=== PATIENT | male | born 1955 | race Caucasian/White ===

== ENCOUNTER 2017-03-01 18:51 | Day surgery (SDC) | payer BC ==
[2017-03-01] MEDS ORDERED: NITROGLYCERIN 0.4 MG BTL SL ONE (19:28)
[2017-03-01] MEDS ORDERED: GLUCAGON,HUMAN RECOMBINANT 1 MG VIAL IVP ONE ×2 (19:28→20:31)
[2017-03-01] MEDS ORDERED: NS 1,000 ML IV ONE (19:28)
--- NOTE | 2017-03-01 19:32 | EDPHY ---
H & P Stated Complaint: something stuck in throat Time Seen by Provider: 03/01/17 19:18 HPI/ROS: CHIEF COMPLAINT: Esophageal foreign body HISTORY OF PRESENT ILLNESS: The patient is a 61-year-old man who comes to the emergency depart with his complaining of chicken stuck in his esophagus. He states that he ate a piece of barbecue chicken while he was walking around 3 o'clock this afternoon. It got stuck in his throat. He self-induced vomiting and thinks that he got most of it out but is still having trouble swallowing his secretions. He denies any respiratory symptoms. He denies chest pain. He states that this is happened intermittently in the past but he has never been worked up for it. Usually it passes when he self induces vomiting. He did take Cialis this morning but takes no other medications other than a over-the- counter thyroid supplement. No history of cardiac disease. REVIEW OF SYSTEMS: Constitutional: denies: chills, fever, recent illness, recent injury EENTM: denies: blurred vision, double vision, nose congestion Respiratory: denies: cough, shortness of breath Cardiac: denies: chest pain, irregular heart rate, lightheadedness, palpitations Gastrointestinal/Abdominal see HPI Genitourinary: denies: dysuria, frequency, hematuria, pain Musculoskeletal: denies: joint pain, muscle pain Skin: denies: lesions, rash, jaundice, bruising Neurological: denies: headache, numbness, paresthesia, tingling, dizziness, weakness Hematologic/Lymphatic: denies: blood clots, easy bleeding, easy bruising Immunologic/allergic: denies: HIV/AIDS, transplant EXAM: GENERAL: Well-appearing, spitting saliva . HEAD: Atraumatic, normocephalic. EYES: Pupils equal round and reactive to light, extraocular movements intact, sclera anicteric, conjunctiva are normal. ENT: TMs normal, nares patent, oropharynx clear without exudates. Moist mucous membranes. NECK: Normal range of motion, supple without lymphadenopathy or JVD. LUNGS: Breath sounds clear to auscultation bilaterally and equal. No wheezes rales or rhonchi. HEART: Regular rate and rhythm without murmurs, rubs or gallops. ABDOMEN: Soft, nontender, normoactive bowel sounds. No guarding, no rebound. No masses appreciated. BACK: No CVA tenderness, no spinal tenderness, step-offs or deformities EXTREMITIES: Normal range of motion, no pitting or edema. No clubbing or cyanosis. NEUROLOGICAL: Cranial nerves II through XII grossly intact. Normal speech, normal gait. 5/5 strength, normal movement in all extremities, normal sensation PSYCH: Normal mood, normal affect. SKIN: Warm, dry, normal turgor, no visible rashes or lesions. Source: Patient Exam Limitations: No limitations - Personal History Current Tetanus/Diphtheria Vaccine: Yes Current Tetanus Diphtheria and Acellular Pertussis (TDAP): Yes - Medical/Surgical History Hx Asthma: No Hx Chronic Respiratory Disease: No Hx Diabetes: No Hx Cardiac Disease: No Hx Renal Disease: No Hx Cirrhosis: No Hx Alcoholism: No Hx HIV/AIDS: No Hx Splenectomy or Spleen Trauma: No Other PMH: hypothyroid, genital herpes, BPH, DYLAN knee surgery - Family History Significant Family History: No pertinent family hx - Social History Smoking Status: Never smoked Alcohol Use: Sober Drug Use: None Constitutional: Initial Vital Signs Temperature (C) 36.6 C 03/01/17 19:02 Heart Rate 64 03/01/17 19:02 Respiratory Rate 16 03/01/17 19:02 Blood Pressure 136/88 H 03/01/17 19:02 O2 Sat (%) 92 03/01/17 19:02 O2 Delivery Mode Simple Mask Allergies/Adverse Reactions: No Known Allergies Allergy (Unverified 03/01/17 19:01) Home Medications: Medication Instructions Recorded Cialis 03/01/17 Nature Thyroid 03/01/17 Medical Decision Making ED Course/Re-evaluation: The patient has satisfactory blood pressure. I will start IV fluids and give him nitroglycerin and glucagon and then try carbonated drink. 8:30 p.m. the patient has not had success after nitroglycerin, glucagon and Sprite. We will try Ativan and another dose of glucagon. I have paged GI. 8:45 p.m. I discussed the case with Dr. Manrique from GI who will prep for upper endoscopy. 10:00 p.m. patient is endoscopy. Care transferred to Dr. Magan Khoury. Differential Diagnosis: Partial list of the Differential diagnosis considered include but were not limited to; esophageal foreign body, the web, and although unlikely based on the history and physical exam, I also considered esophageal varices, web , foreign body airway. - Data Points Laboratory Results: Laboratory Results 03/01/17 19:40 03/01/17 19:40 Medications Given: Discontinued Medications Glucagon (Glucagen) 1 mg IVP EDNOW ONE Stop: 03/01/17 19:29 Last Admin: 03/01/17 20:01 Dose: 1 mg Glucagon (Glucagen) 1 mg IVP EDNOW ONE Stop: 03/01/17 20:32 Last Admin: 03/01/17 20:45 Dose: 1 mg Sodium Chloride (Ns) 1,000 mls @ 0 mls/hr IV EDNOW ONE; Wide Open PRN Reason: Protocol Stop: 03/01/17 19:29 Last Admin: 03/01/17 19:42 Dose: 1,000 mls Lorazepam (Ativan Injection) 1 mg IVP EDNOW ONE Stop: 03/01/17 20:32 Last Admin: 03/01/17 20:41 Dose: 1 mg Nitroglycerin (Nitrostat) 0.4 mg SL EDNOW ONE Stop: 03/01/17 19:29 Last Admin: 03/01/17 19:41 Dose: 0.4 mg Departure - Departure Disposition: To OP Cath/Surgery Clinical Impression: Esophageal foreign body Qualifiers: Encounter type: initial encounter Qualified Code(s): T18.108A - Unspecified foreign body in esophagus causing other injury, initial encounter Condition: Fair
[2017-03-01] MEDS ORDERED: LORazepam 2 MG/ML INJ IVP ONE (20:31)
[2017-03-01 20:56] LABS: % IMMATURE GRANULYOCYTES 0.3 % (0.0-1.1); ABSOLUTE IMMATURE GRANULOCYTES 0.03 10^3/uL (0.00-0.10); ADD DIFF? NO; ADD MORPH? NO; ADD SCAN? NO; ATYPICAL LYMPHOCYTE FLAG 0 (0-99); FRAGMENT RBC FLAG 0 (0-99); HEMATOCRIT 47.3 % (40.0-51.0); HEMOGLOBIN 16.3 g/dL (13.7-17.5); LEFT SHIFT FLG 0 (0-99); LIPEMIA HEMOLYSIS FLAG 90 (0-99); MEAN CELL HEMOGLOBIN 29.7 pg (27.9-34.1); MEAN CELL HEMOGLOBIN CONCENTR. 34.5 g/dL (32.4-36.7); MEAN CELL VOLUME 86.2 fL (81.5-99.8); MEAN PLATELET VOLUME 11.9 fL (8.7-11.7); PLATELET CLUMPS FLAG 10 (0-99); PLATELET COUNT 220 10^3/uL (150-400); RED BLOOD CELL COUNT 5.49 10^6/uL (4.40-6.38); RED CELL DISTRIBUTION WIDTH 13.2 % (11.5-15.2)
[2017-03-01 21:07] LABS: ANION GAP 14 mEq/L (8-16); CALCIUM 9.8 mg/dL (8.5-10.4); CARBON DIOXIDE 21 mEq/l (22-31); CHLORIDE 111 mEq/L (97-110); GLOMERULAR FILTRATION RATE > 60; GLUCOSE 99 mg/dL (70-100); POTASSIUM 4.2 mEq/L (3.5-5.2); SODIUM 146 mEq/L (134-144)
[2017-03-01] MEDS ORDERED: FLUMAZENIL 0.5 MG/5 ML MDV IVP ONE (21:18)
[2017-03-01] MEDS ORDERED: fentaNYL 100 MCG/2 ML INJ ONE ×2 (21:18→22:40)
[2017-03-01] MEDS ORDERED: NALOXONE HCL 0.4 MG/ML INJ ONE (21:18)
[2017-03-01] MEDS ORDERED: MIDAZOLAM 2 MG/2 ML VIAL ONE (21:18)
[2017-03-01] MEDS ORDERED: EPINEPHrine 1 MG/10 ML SYR IVP ONE (21:18)
[2017-03-01 21:39] VITALS: BP 136/87; PULSE 75; RESP 16
[2017-03-01] MEDS ORDERED: PROPOFOL/EMULSION 500 MG/50 ML BOTTLE IV ONE (22:40)
--- NOTE | 2017-03-01 23:12 | PDANEPAE ---
ANE History of Present Illness Esopheal foreign body ANE Past Medical History - Cardiovascular History Hx Hypertension: No Hx Arrhythmias: No Hx Chest Pain: No Hx Coronary Artery / Peripheral Vascular Disease: No Hx CHF / Valvular Disease: No Hx Palpitations: No - Pulmonary History Hx COPD: No Hx Asthma/Reactive Airway Disease: No Hx Recent Upper Respiratory Infection: No Hx Oxygen in Use at Home: No Hx Sleep Apnea: No - Endocrine History Hx Diabetes: No Hypothyroid: Yes Hyperthyroid: No Obesity: no ANE Review of Systems - Exercise capacity Exercise capacity: >=4 METS ANE Patient History - Allergies Allergies/Adverse Reactions: No Known Allergies Allergy (Unverified 03/01/17 19:01) - Home Medications Home medications: home medication list seen and reviewed Home Medications: Cialis 03/01/17 [Last Taken Unknown] Nature Thyroid 03/01/17 [Last Taken Unknown] - NPO status NPO Since - Liquids (Date): 03/01/17 NPO Since - Liquids (Time): 21:00 NPO Since - Solids (Date): 03/01/17 NPO Since - Solids (Time): 17:00 - Anes Hx Anes Hx: no prior problems - Smoking Hx Smoking Status: Never smoked - Alcohol Use Alcohol Use: Sober - Family Anes Hx Family Anes Hx: none ANE Labs/Vital Signs - Labs Result Diagrams: 03/01/17 19:40 03/01/17 19:40 - Vital Signs Blood Pressure: 136/87 Heart Rate: 75 Respiratory Rate: 16 O2 Sat (%): 95 Height: 193.04 cm Weight: 92.986 kg ANE Physical Exam - Airway Neck exam: FROM Mallampati Score: Class 2 Mouth exam: normal dental/mouth exam - Pulmonary Pulmonary: no respiratory distress - Cardiovascular Cardiovascular: regular rate and rhythym - ASA Status ASA Status: II, E ANE Anesthesia Plan Anesthesia Plan: general endotracheal anesthesia (Patient sedated. Failed sedation consent) Urgent/Emergent Case: Yaz tan completed preop but documented later for safe timely pt care
[2017-03-01] MEDS ORDERED: OXYCODONE/APAP 5/325 TAB PO PRN (23:32)
[2017-03-01] MEDS ORDERED: NALOXONE HCL 0.4 MG/ML INJ IVP PRN (23:32)
[2017-03-01] MEDS ORDERED: HYDROCODONE/APAP 5/325 TAB PO PRN (23:32)
[2017-03-01] MEDS ORDERED: ONDANSETRON 4 MG/2 ML VIAL IVP PRN (23:32)
[2017-03-01] MEDS ORDERED: fentaNYL 100 MCG/2 ML INJ IVP PRN (23:32)
[2017-03-01] MEDS ORDERED: GLYCOPYRROLATE 0.2 MG/1 ML VIAL ONE (23:37)
[2017-03-01] MEDS ORDERED: ONDANSETRON 4 MG/2 ML VIAL ONE (23:37)
[2017-03-01] MEDS ORDERED: DEXAMETHASONE 4 MG/ML VIAL ONE (23:37)
[2017-03-01] MEDS ORDERED: SUGAMMADEX SODIUM 200 MG/2 ML VIAL IVP ONE (23:37)
[2017-03-01] MEDS ORDERED: ROCURONIUM 50 MG/5 ML VIAL ONE (23:37)
--- NOTE | 2017-03-01 23:43 | POSTANESTH ---
Post Anesthetic Evaluation Cardiovascular Status: Normal, Stable Respiratory Status: Normal, Stable Level of Consciousness/Mental Status: Can Participate in Eval Pain Control: Adequate, Prn Tx Ordered Nausea/Vomiting Control: Adequate, Prn Tx Ordered Complications Possibly Related to Anesthesia: None Noted
[2017-03-01 23:44] VITALS: TEMP 97.2
[2017-03-02 00:01] VITALS: O2SAT 92
--- NOTE | 2017-03-02 08:26 | GPN ---
[f rep st] PROCEDURE NOTE DATE OF PROCEDURE: 03/01/2017 PROCEDURE: Esophagogastroduodenoscopy with foreign body removal. CONSENT: Consent was obtained from the patient after the risks and benefits of endoscopy and consci ous sedation were discussed in detail. All questions were answered and informed consent was obtainiban d. OVEN ROASTER: Edwin Manrique MD. ENDOSCOPY STAFF: Collin. ANESTHESIA: Ultimately provided by Dr. Hi. COMPLICATIONS: None. ESTIMATED BLOOD LOSS: None. PROCEDURE DESCRIPTION: The patient was placed into the left lateral decubitus position. Versed and fentanyl were administered until he was comfortable. A total of 7 mg of Versed and 100 mcg of fent anyl were given. Oxygen 2 L nasal cannula was provided continuous. Monitoring including blood pres sure, heart rate, telemetry, oxygen saturation, and respiratory rate as well as general level of con sciousness were monitored continuously. The Olympus endoscope was placed into the oropharynx. Ther e were some thick secretions which were removed through the endoscope. The endoscope was used to di rectly intubate the esophagus. There were dark brown secretions filling the proximal esophagus with an impacted piece of chicken in the lower third, at about 30 cm, that was completely obstructing th e esophagus. The fluid above the chicken bolus was removed. Numerous attempts were made to remove the bolus using a rat-tooth forceps, cold jumbo biopsy forceps and a Hines Net. This was unsuccessfu l in dislodging much of the bolus at all. The bolus was then gently tried to be rotated and pressed into the stomach which was also unsuccessful due to how severely wedged it was in the lower esophag us. The esophagus was cleared of any residual secretions and the endoscope removed. The patient wa s placed with his head of the bed at 30 degrees and he was recovered from conscious sedation at this point, and suction was used to make sure he did not have any secretions in the mouth or posterior pharynx. At this point, Anesthesiology was consulted to help with the procedure for airway protection, and as the bolus was going to take more technical maneuvers and even to be piecemeal removed out the oroph arynx, it was felt that intubation was appropriate, not only to provide a better level of anesthesia for the patient, to relax him more from a muscular standpoint to allow the esophagus to soften up a nd maybe push the bolus down, and most importantly for airway protection. General anesthesia was pr ovided. The patient's was consented for anesthesia. Of note, the patient was recovered fairly well from the conscious sedation. Was able to participate in the discussion understanding that he was going to need general anesthesia and agreeable as well. General endotracheal anesthesia was administered. The patient was made comfortable. The oral bite block was placed around the ET tube which was taped to the left of the mouth. The head of the bed w as again placed at about 30 degrees and the Olympus endoscope again placed back into the oropharynx and intubated into the esophagus. The chicken bolus was then visualized at about 30 cm. This was w edged tightly within a narrowing of the esophagus. Using diligent and slow but deliberate technique , rat-tooth forceps was utilized to rough up the surface of the bolus. The Hines Net was then exchan ged and placed over and grabbed the tip of the roughed up pieces of chicken and then removed slowly over time. When about a one third of the top of the bolus was removed, again, gentle technique was used to try to press the bolus out of the esophagus. This again failed. Further attempts at the ra t-tooth forceps were then used to again pulled apart the top of the food bolus, again being captured in a Hines Net and most of the top of the food bolus again removed out the oropharynx this way. A t hird attempt to gently press the food bolus now down into the stomach with the majority of the top o f the bolster removed was actually successful. The food bolus gently slipped past the stricture in the top of the lower third of the esophagus and pushed into the stomach. There was no bleeding seen within the esophagus or trauma from the removal of the foreign body. There was a narrowing of the esophagus again at the top of the lower third at about 30 cm, extending about 2 cm in length and denys earing benign. The GE junction appeared normal. The stomach was incompletely visualized because of the retained fluid and food that was present. The pylorus however was patent and a quick intubatio n of the duodenum confirmed that there was no gastric outlet obstruction. The duodenal mucosa appea red normal. A retroflexed view was not obtained. The stomach was decompressed of air, and with flu id it could, and the esophagus again reinspected to make sure there was no residual debris or food w hich was clear. IMPRESSION: 1. Large chicken bolus impacted at the upper portion of the lower third of the esophagus involving approximately 2 cm intrinsic narrowing. 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 2. Multiple maneuvers to remove the foreign body including rat-tooth forceps, jumbo biopsy forceps and Hines Net technique. About a third of the bolus was removed through the oropharynx and the remai nder pressed into the stomach. 3. Normal stomach that was visualized although this was incomplete. 4. Normal duodenum to about the first portion. RECOMMENDATIONS: 1. Pureed diet only. 2. Omeprazole 40 mg daily. 3. Salt water gargle twice daily with lozenges for throat soothing. I imagine with the endotrachea l intubation as well as the numerous esophageal intubations required to remove the bolus he may have somewhat of a bit of a sore throat. 4. Repeat endoscopy in 2 weeks to reassess the stricture and possibly perform dilation as well as e sophageal biopsy. 5. Avoid all NSAIDs and aspirin. 6. The patient will be recovered, and if feeling well, without postprocedural events he will be dis charged home to the care of his . /[id number]/MODL
== END 2017-03-02 00:15 | disposition home or self-care (01) ==
LOC: FSGY 22:29
PROVIDERS: ATTEND Internal Medicine Gastroenterology
PROC: 3E0337Z Introduction of Electrolytic and Water Balance Substance into Peripheral Vein, Percutaneous Approach (ICD-10-PCS; 2017-03-01)
PROC: 0DC38ZZ Extirpation of Matter from Lower Esophagus, Via Natural or Artificial Opening Endoscopic (ICD-10-PCS; principal; 2017-03-01 21:39)
DX: T18.128A Food in esophagus causing other injury, initial encounter (principal); E86.9 Volume depletion, unspecified; Y92.9 Unspecified place or not applicable; Y93.01 Activity, walking, marching and hiking
CPT/HCPCS: 96374; J1100; J1610; J2060; J2250; J2310; J2405; J2704; J3010